=== PATIENT | female | born 1985 | race Caucasian/White ===

== ENCOUNTER 2019-10-05 11:08 | Emergency (ER) | payer MEDICAID ==
[2019-10-05 11:21] VITALS: BP 116/73
--- NOTE | 2019-10-05 12:11 | ED Physician Documentation ---
History of Present Illness - Stated complaint Stated Complaint: COLD SX/CHEST CONGESTION - Chief complaint Chief Complaint: Resp - Additonal information Additional information: This is a 34-year-old female with a history of childhood asthma who presents with some sinus pressure, cough productive of green sputum, ear pressure, for 3 days. Patient traveled here from [place] and states that when she drove over passes she would have pressure in her ears. She felt some subjective fever on Thursday and Thursday, none today. She denies abdominal pain or vomiting, no chest pain. She is a history of asthma, and states that her breathing has felt a little bit tight today. Review of Systems Constitutional: reports: Fever Cardiac: denies: Chest pain / pressure Respiratory: reports: Cough Skin: denies: Rash PD PAST MEDICAL HISTORY - Past Medical History Past Medical History: No - Past Surgical History Past Surgical History: No - Present Medications Home Medications: Ambulatory Orders Medication Instructions Recorded Confirmed Albuterol Sulf [Ventolin Hfa 1 - 2 puffs INH Q4HR PRN #1 inhaler 10/05/19 Inhaler] Benzonatate [Tessalon Perle] 100 - 200 mg PO TID PRN #30 capsule 10/05/19 Fluticasone [Flonase] 1 spray DAILY 10/05/19 10/05/19 Omeprazole 0 mg DAILY 10/05/19 10/05/19 - Allergies Allergies/Adverse Reactions: Allergies Allergy/AdvReac Type Severity Reaction Status Date / Time No Known Drug Allergies Allergy Verified 10/05/19 11:21 - Social History Does the pt smoke?: No Smoking Status: Never smoker Does the pt drink ETOH?: No Does the pt have substance abuse?: No - Immunizations Immunizations are current?: Yes PD ED PE NORMAL - Vitals Vital signs reviewed: Yes - General General: Alert and oriented X 3 - HEENT HEENT: Atraumatic, Pharynx benign - Neck Neck: Supple, no meningeal sign - Cardiac Cardiac: RRR, No murmur - Respiratory Respiratory: No respiratory distress, Clear bilaterally, Other (intermittent cough) - Abdomen Abdomen: Non tender, Non distended - Neuro Neuro: Alert and oriented X 3 Results - Vitals Vitals: Vital Signs - 24 hr 10/05/19 11:14 Temperature 36.7 C Heart Rate 88 Respiratory 16 Rate Blood Pressure 116/73 O2 Saturation 96 Oxygen O2 Source Room air - Rads (name of study) CXR Radiology: Other (No acute cardiopulmonary process) PD MEDICAL DECISION MAKING - ED course Complexity details: considered differential (URI, asthma, pneumonia, bronchitis, otitis media) ED course: Pt is non-toxic in appearance, with unremarkable vital signs. No suppurative otitis media on exam, she has a small amount of serous fluid that is likely due to eustachian tube dysfunction. XR is negative for acute pulmonary abnormality and the duration of her symptoms and vital signs make pneumonia and bacterial sinusitis unlikely clinically. I discussed that she appears to have a URI. She is not wheezing but she may trial albuterol given her history of asthma. Supportive care was reviewed along with return precautions and patient was discharged home in the care of her mother. Departure - Departure Disposition: 01 Home, Self Care Clinical Impression: Upper respiratory tract infection Qualifiers: URI type: unspecified viral URI Qualified Code(s): J06.9 - Acute upper respiratory infection, unspecified Condition: Good Instructions: ED Viral Syndrome Prescriptions: Albuterol Sulf [Ventolin Hfa Inhaler] 1 - 2 puffs INH Q4HR PRN #1 inhaler PRN Reason: Shortness Of Air/Wheezing Benzonatate [Tessalon Perle] 100 - 200 mg PO TID PRN #30 capsule PRN Reason: Cough Comments: You appear to have a viral upper respiratory infection today. Please drink plenty of fluids and get adequate rest. Try the Tessalon Perles for cough and the albuterol inhaler for feelings of congestion. You may take 600 mg of ibuprofen every 6 hours as needed for fever pain, 650 mg of Tylenol as needed for fever and pain every 6 hours as needed. Or you may take a cold remedy of your choice. Discharge Date/Time: 10/05/19 12:56
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
[2019-10-05] MEDS ORDERED: DEXAMETHASONE 10 MG/ML VIAL PO STA (12:31)
[2019-10-05] MEDS ORDERED: CHERRY SYRUP 10 ML UDC PO ONE (12:31)
== END 2019-10-05 12:56 | disposition home or self-care (01) ==
LOC: ED 11:08
DX: J06.9 Acute upper respiratory infection, unspecified (principal)
CPT/HCPCS: 71046; 99283; A9270

== ENCOUNTER 2019-10-25 05:17 | Emergency (ER) | payer MEDICAID ==
[2019-10-25] MEDS ORDERED: SODIUM CHLORIDE 0.9% 1,000 ML IV STA (05:40)
[2019-10-25] MEDS ORDERED: ONDANSETRON 4 MG/2 ML VIAL IVP STA (05:40)
[2019-10-25 05:49] LABS: BASOPHILS % (AUTO) 0.2 %; EOSINOPHILS # (AUTO) 0.1 10^3/uL (0.0-0.7); EOSINOPHILS % (AUTO) 0.4 %; HGB - HEMOGLOBIN 14.5 g/dL (12.0-16.0); LYMPHOCYTES # (AUTO) 1.6 10^3/uL (1.5-3.5); LYMPHOCYTES % (AUTO) 12.3 %; MEAN CORPUSCULAR HGB CONC 33.6 g/dL (32.0-36.0); MEAN CORPUSCULAR VOLUME 92.5 fL (81.0-99.0); MEAN PLATELET VOLUME 10.5 fL (7.9-10.8); MONOCYTES # (AUTO) 0.6 10^3/uL (0.0-1.0); MONOCYTES % (AUTO) 4.9 %; NEUTROPHILS # (AUTO) 10.3 10^3/uL (1.5-6.6); NEUTROPHILS % (AUTO) 81.8 %; PLT - PLATELET COUNT 275 10^3/uL (130-450); RED BLOOD COUNT 4.67 10^6/uL (4.20-5.40); RED CELL DISTRIBUTION WIDTH 12.4 % (12.0-15.0); WHITE BLOOD COUNT 12.6 x10^3/uL (4.8-10.8)
[2019-10-25 06:06] LABS: ALBUMIN 4.4 g/dL (3.2-5.5); ALBUMIN/GLOBULIN RATIO 1.3 (1.0-2.2); BILIRUBIN,TOTAL 0.8 mg/dL (0.2-1.0); CALCIUM 9.9 mg/dL (8.5-10.3); CREATININE 0.7 mg/dL (0.4-1.0); TOTAL PROTEIN 7.7 g/dL (6.7-8.2)
[2019-10-25] MEDS ORDERED: SODIUM CHLORIDE 0.9% 1,000 ML IV ONE (07:04)
[2019-10-25 07:14] VITALS: BP 105/80
--- NOTE | 2019-10-25 07:37 | ED Physician Documentation ---
History of Present Illness - Stated complaint Stated Complaint: NAUSEA/SYNCOPE - Chief complaint Chief Complaint: Neuro - History obtained from History obtained from: Patient, Family - History of Present Illness Timing: How many hours ago (4) Pain level max: 3 Pain level now: 2 - Additonal information Additional information: nausea, vomiting and diarrhea for the past 3-4 hours. No fever. Nothing makes it better or worse. States believes she passed out and she fell, striking the bridge of her nose. no epistaxis. no neck or back pain. No possibility of . not . Patient states that she felt lightheaded and dizzy before passing out. She states that she was pale and sweaty as well. Review of Systems Constitutional: denies: Fever, Chills Nose: denies: Rhinorrhea / runny nose, Congestion : denies: Dysuria, Now EGA Skin: denies: Rash Musculoskeletal: denies: Neck pain, Back pain Neurologic: denies: Focal weakness, Numbness, Confused, Altered mental status PD PAST MEDICAL HISTORY - Past Surgical History Past Surgical History: No - Present Medications Home Medications: Ambulatory Orders Medication Instructions Recorded Confirmed Albuterol Sulf [Ventolin Hfa 1 - 2 puffs INH Q4HR PRN #1 inhaler 10/05/19 Inhaler] Benzonatate [Tessalon Perle] 100 - 200 mg PO TID PRN #30 capsule 10/05/19 Fluticasone [Flonase] 1 spray DAILY 10/05/19 10/05/19 Omeprazole 0 mg DAILY 10/05/19 10/05/19 Ondansetron Odt [Zofran] 4 mg TL Q6H PRN #10 tablet 10/25/19 - Allergies Allergies/Adverse Reactions: Allergies Allergy/AdvReac Type Severity Reaction Status Date / Time gluten Allergy Intermediate Cramps Verified 10/25/19 05:54 - Social History Does the pt smoke?: No Smoking Status: Never smoker Does the pt drink ETOH?: No Does the pt have substance abuse?: No - Immunizations Immunizations are current?: Yes PD ED PE NORMAL - Vitals Vital signs reviewed: Yes - General General: Alert and oriented X 3, No acute distress, Well developed/nourished - HEENT HEENT: Atraumatic, PERRL, EOMI, Moist mucous membranes, Pharynx benign, Other (No scalp hematomas or palpable skull fractures. Small ecchymosis to the bridge of the nose. No significant swelling. No septal hematoma. No facial bone tenderness) - Neck Neck: Supple, no meningeal sign, No bony TTP - Cardiac Cardiac: RRR, Strong equal pulses - Respiratory Respiratory: No respiratory distress, Clear bilaterally - Abdomen Abdomen: Soft, Non tender, Non distended - Back Back: No CVA TTP, No spinal TTP - Derm Derm: Warm and dry, No rash - Extremities Extremities: No edema - Neuro Neuro: Alert and oriented X 3, administrative support manager 2-12 intact, No motor deficit, No sensory deficit, Normal speech Eye Opening: Spontaneous Motor: Obeys Commands Verbal: Oriented GCS Score: 15 Results - Vitals Vitals: Vital Signs - 24 hr 10/25/19 10/25/19 10/25/19 05:25 05:40 06:20 Temperature 36.8 C Heart Rate 96 86 91 Respiratory 15 15 Rate Blood Pressure 118/87 H 110/77 O2 Saturation 100 100 10/25/19 07:13 Temperature Heart Rate 87 Respiratory 17 Rate Blood Pressure 105/80 O2 Saturation 99 Oxygen O2 Source Room air - EKG (time done) 0534 Rate: Rate (enter#) (96) Rhythm: NSR [place]: Normal Intervals: Normal MD QRS: Normal Ischemia: Normal ST segments - Labs Labs: Laboratory Tests 10/25/19 10/25/19 10/25/19 05:30 05:30 07:50 WBC 12.6 H RBC 4.67 Hgb 14.5 Hct 43.2 MCV 92.5 MCH 31.0 MCHC 33.6 RDW 12.4 Plt Count 275 MPV 10.5 Neut # (Auto) 10.3 H Lymph # (Auto) 1.6 [place] # (Auto) 0.6 Eos # (Auto) 0.1 Baso # (Auto) 0.0 Absolute Nucleated RBC 0.00 Nucleated RBC % 0.0 Sodium 140 Potassium 3.6 Chloride 105 Carbon Dioxide 24 Anion Gap 11.0 BUN 16 Creatinine 0.7 Estimated GFR (MDRD) 95 Glucose 115 H Calcium 9.9 Total Bilirubin 0.8 AST 60 H ALT 90 H Alkaline Phosphatase 86 Total Protein 7.7 Albumin 4.4 Globulin 3.3 Albumin/Globulin Ratio 1.3 Lipase 30 Urine Color YELLOW Urine Clarity CLEAR Urine pH 8.0 H Ur Specific [place] 1.015 Urine Protein NEGATIVE Urine Glucose (UA) NEGATIVE Urine Ketones NEGATIVE Urine Occult Blood NEGATIVE Urine Nitrite NEGATIVE Urine Bilirubin NEGATIVE Urine Urobilinogen 0.2 (NORMAL) Ur Leukocyte Esterase NEGATIVE Ur Microscopic Review NOT INDICATED Urine Culture Comments NOT INDICATED Urine HCG, Qual NEGATIVE PD MEDICAL DECISION MAKING - ED course Complexity details: reviewed results, re-evaluated patient, considered differential, d/w patient, d/w family ED course: Patient is well-appearing, nontoxic. Appears to have had a viral gastroenteritis. She is tolerating p.o. without difficulty. Feels much better after IV fluids. Her nose appears contused, but not likely fractured. No acute findings on EKG or telemetry monitoring. Patient counseled regarding signs and symptoms for which I believe and urgent re-evaluation would be necessary. Patient with good understanding of and agreement to plan and is comfortable going home at this time This document was made in part using voice recognition software. While efforts are made to proofread this document, sound alike and grammatical errors may occur. Departure - Departure Disposition: 01 Home, Self Care Clinical Impression: Viral gastroenteritis, Vasovagal syncope Nasal contusion Qualifiers: Encounter type: initial encounter Qualified Code(s): S00.33XA - Contusion of nose, initial encounter Condition: Good Instructions: ED Syncope Vasovagal, ED Gastroenteritis Viral Follow-Up: your,doctor as needed [Other] Prescriptions: Ondansetron Odt [Zofran] 4 mg TL Q6H PRN #10 tablet PRN Reason: Nausea / Vomiting Comments: Go home and rest. Return if you worsen. Drink plenty of fluids today and tomorrow. Discharge Date/Time: 10/25/19 08:41
[2019-10-25 08:11] LABS: BILIRUBIN,URINE NEGATIVE (NEGATIVE); GLUCOSE, URINE (UA) NEGATIVE (NEGATIVE); KETONES,URINE (UA) NEGATIVE (NEGATIVE); LEUKOCYTE ESTERASE, URINE NEGATIVE (NEGATIVE); NITRITE,URINE NEGATIVE (NEGATIVE); OCCULT BLOOD,URINE NEGATIVE (NEGATIVE); PROTEIN,URINE NEGATIVE (NEGATIVE); UROBILINOGEN,URINE 0.2 (NORMAL) E.U./dL (NORMAL)
[2019-10-25 08:12] LABS: CLARITY,URINE CLEAR (CLEAR)
[2019-10-25 08:13] LABS: HCG UR QUAL NEGATIVE
== END 2019-10-25 08:41 | disposition home or self-care (01) ==
LOC: ED 05:17
DX: A08.4 Viral intestinal infection, unspecified (principal); R55 Syncope and collapse; S00.33XA Contusion of nose, initial encounter; W19.XXXA Unspecified fall, initial encounter
CPT/HCPCS: 36415; 80053; 81001; 81003; 81025; 83690; 85025; 87086; 93005; 96361; 96374; 99284

== ENCOUNTER 2020-01-30 09:27 | Outpatient (CLI) | payer MEDICAID ==
[2020-01-30 10:21] LABS: BASOPHILS # (AUTO) 0.1 10^3/uL (0.0-0.1); EOSINOPHILS % (AUTO) 0.4 %; HGB - HEMOGLOBIN 13.3 g/dL (12.0-16.0); LYMPHOCYTES # (AUTO) 1.5 10^3/uL (1.5-3.5); LYMPHOCYTES % (AUTO) 28.4 %; MEAN CORPUSCULAR HEMOGLOBIN 29.8 pg (27.0-31.0); MEAN CORPUSCULAR HGB CONC 31.7 g/dL (32.0-36.0); MEAN PLATELET VOLUME 11.1 fL (7.9-10.8); MONOCYTES # (AUTO) 0.4 10^3/uL (0.0-1.0); NEUTROPHILS # (AUTO) 3.2 10^3/uL (1.5-6.6); NEUTROPHILS % (AUTO) 61.8 %; PLT - PLATELET COUNT 262 10^3/uL (130-450); RED BLOOD COUNT 4.47 10^6/uL (4.20-5.40); RED CELL DISTRIBUTION WIDTH 12.8 % (12.0-15.0); WHITE BLOOD COUNT 5.1 x10^3/uL (4.8-10.8)
[2020-01-30 10:35] LABS: ALBUMIN 4.4 g/dL (3.2-5.5); ALBUMIN/GLOBULIN RATIO 1.5 (1.0-2.2); BILIRUBIN,TOTAL 0.5 mg/dL (0.2-1.0); CALCIUM 9.4 mg/dL (8.5-10.3); CREATININE 0.6 mg/dL (0.4-1.0); TOTAL PROTEIN 7.3 g/dL (6.7-8.2)
== END 2020-01-30 09:28 | disposition home or self-care (01) ==
LOC: LAB 09:27
PROVIDERS: ATTEND Registered Nurse
DX: E34.9 Endocrine disorder, unspecified (principal); J30.2 Other seasonal allergic rhinitis; Z91.018 Allergy to other foods; E28.2 Polycystic ovarian syndrome
CPT/HCPCS: 36415; 80053; 82951; 84443; 85025

== ENCOUNTER 2020-02-06 07:23 | Outpatient (CLI) | payer MEDICAID | END 2020-02-06 07:24 | disposition home or self-care (01) | LOC: LAB 07:23 | PROVIDERS: ATTEND Registered Nurse | DX: E34.9 Endocrine disorder, unspecified (principal); E28.2 Polycystic ovarian syndrome; J30.2 Other seasonal allergic rhinitis; Z91.018 Allergy to other foods | CPT/HCPCS: 36415; 82951 ==

== ENCOUNTER 2021-07-08 10:21 | Outpatient (CLI) | payer MEDICAID | END 2021-07-08 23:59 | disposition home or self-care (01) | LOC: LAB.R 10:21 | PROVIDERS: ATTEND Emergency Medicine | DX: U07.1 COVID-19 (principal) ==

== ENCOUNTER 2021-10-31 11:00 | Outpatient (CLI) | payer MEDICAID ==
[2021-10-31 15:36] LABS: T4 (THYROXINE) 7.65 ug/dL (6.09-12.23)
[2021-10-31 15:39] LABS: THYROID STIMULATING HORMONE 3.91 uIU/mL (0.34-5.60)
[2021-10-31 16:31] LABS: FREE T4 (FREE THYROXINE) 0.64 ng/dL (0.58-1.64)
== END 2021-10-31 11:01 | disposition home or self-care (01) ==
LOC: LAB.S 11:00
PROVIDERS: ATTEND Nurse Practitioner Obstetrics & Gynecology
DX: L65.9 Nonscarring hair loss, unspecified (principal)
CPT/HCPCS: 36415; 84436; 84439; 84443

== ENCOUNTER 2021-12-20 10:08 | Outpatient (CLI) | payer MEDICAID ==
[2021-12-20 15:47] LABS: HCT - HEMATOCRIT 41.3 % (37.0-47.0); HGB - HEMOGLOBIN 13.5 g/dL (12.0-16.0); MEAN CORPUSCULAR HEMOGLOBIN 31.7 pg (27.0-31.0); MEAN CORPUSCULAR HGB CONC 32.7 g/dL (32.0-36.0); MEAN CORPUSCULAR VOLUME 96.9 fL (81.0-99.0); MEAN PLATELET VOLUME 10.9 fL (7.9-10.8); RED BLOOD COUNT 4.26 10^6/uL (4.20-5.40); RED CELL DISTRIBUTION WIDTH 12.3 % (12.0-15.0); WHITE BLOOD COUNT 5.1 x10^3/uL (4.8-10.8)
== END 2021-12-20 10:09 | disposition home or self-care (01) ==
LOC: LAB.S 10:08
PROVIDERS: ATTEND Nurse Practitioner Obstetrics & Gynecology
DX: R53.83 Other fatigue (principal); L65.9 Nonscarring hair loss, unspecified
CPT/HCPCS: 36415; 85025; 85027

== ENCOUNTER 2022-01-22 11:50 | Outpatient (CLI) | payer MEDICAID | END 2022-01-22 11:51 | disposition home or self-care (01) | LOC: LAB.S 11:50 | PROVIDERS: ATTEND Nurse Practitioner Obstetrics & Gynecology | DX: L65.9 Nonscarring hair loss, unspecified (principal) | CPT/HCPCS: 36415; 82728 ==

== ENCOUNTER 2023-02-09 08:00 | Outpatient (CLI) | payer MEDICAID ==
--- NOTE | 2023-02-09 17:13 | XRAY Report ---
PROCEDURE: Chest 2 View X-Ray INDICATIONS: PRODUCTIVE COUGH TECHNIQUE: 2 views of the chest were acquired. COMPARISON: None. FINDINGS: Surgical changes and devices: None. Lungs and pleura: No pleural effusions or pneumothorax. Lungs are clear. Mediastinum: Mediastinal contours are normal. Heart size is normal. Bones and chest wall: No suspicious bony abnormalities. Soft tissues appear unremarkable. IMPRESSION: No acute cardiopulmonary findings. Reviewed by: Amira Luke MD on 02/09/2023 5:11 PM PDT Approved by: Amira Luke MD on 02/09/2023 5:11 PM PDT Station ID: [id number]
== END 2023-02-09 23:59 | disposition home or self-care (01) ==
LOC: DI.S 08:00
PROVIDERS: ATTEND Physician Assistant Medical
DX: R05.8 Other specified cough (principal); R09.89 Other specified symptoms and signs involving the circulatory and respiratory systems

== ENCOUNTER 2023-07-13 10:40 | Outpatient (CLI) | payer MEDICAID ==
--- NOTE | 2023-07-14 09:11 | Mammography Report ---
BILATERAL FIRST EVER DIGITAL SCREENING MAMMOGRAM 3D/2D WITH EXAGGERATED CC: 07/13/2023 CLINICAL: Routine screening. Baseline exam. Family history of breast cancer. No prior exams were available for comparison. Both breasts are heterogeneously dense, which may obscure small masses (category c / 51-75% glandular tissue). Multiple asymmetries are present within the left breast as detailed on wilson images. No other significant masses, calcifications, or other findings are seen in either breast. IMPRESSION: INCOMPLETE: NEEDS ADDITIONAL IMAGING EVALUATION Multiple left-sided asymmetries warrant further evaluation with additional views and possible ultras ound. Based on Tyrer-Cuzick model (a risk assessment model), the patient's lifetime risk is 20.1% and her 1 0 year risk is 2.6%. If a patient has an elevated risk, a more comprehensive evaluation should be con sidered and/or a referral to a genetic counselor. The [place] [employer], [employer], and NCCN Guidelines advise the consideration of Breast MRI as an adjunct to screening mammog lauro in patients whose "Lifetime risk to develop breast cancer" is 20% or higher. This exam was interpreted at Station ID: [id number]. NOTE: For mammograms, a report in lay terms will be sent to the patient. Approximately 15% of breast malignancies will not be visualized mammographically. In the management of a palpable breast mass, a negative mammogram must not discourage biopsy of a clinically suspicious lesion. Electronically Signed By: Evaristo Hernandez M.D. acr/:07/13/2023 16:08:11 ACR BI-RADS Category 0: Incomplete 3340F PARENCHYMAL PATTERN: (D) - The breast(s) demonstrate(s) heterogeneously dense fibroglandular parenchy ma. BI-RADS CATEGORY: (0) - 0 Mammo and [place] [id number] Immediate follow-up LATERALITY: (L)
== END 2023-07-13 10:41 | disposition home or self-care (01) ==
LOC: DI.S 10:40
PROVIDERS: ATTEND Obstetrics & Gynecology
DX: Z12.31 Encounter for screening mammogram for malignant neoplasm of breast (principal); Z80.3 Family history of malignant neoplasm of breast; R92.8 Other abnormal and inconclusive findings on diagnostic imaging of breast

== ENCOUNTER 2023-08-10 10:39 | Outpatient (CLI) | payer MEDICAID ==
--- NOTE | 2023-08-11 09:50 | Mammography Report ---
UNILATERAL LEFT DIGITAL DIAGNOSTIC MAMMOGRAM 3D/2D WITH SPOT COMPRESSION: 08/10/2023 CLINICAL: Patient returns today to evaluate multiple asymmetries in the left breast. Comparison is made to exam dated: 07/13/2023 mammogram - [facility]. The left breast is heterogeneously dense, which may obscure small masses (category c / 51-75% glandul ar tissue). There is an oval asymmetry in the left breast posterior depth central to the nipple seen on the crani ocaudal view only. There also is an oval asymmetry in the left breast sub-areolar depth central to the nipple seen on th e craniocaudal view only. Additionally, there is an oval asymmetry in the left breast at 7 o'clock in the retroareolar region. No other significant masses or calcifications are seen in the breast. IMPRESSION: INCOMPLETE: NEEDS ADDITIONAL IMAGING EVALUATION Multiple oval asymmetries and focal asymmetries as outlined on screening mammography measuring 0.5-0. 8cm, possibly cysts. Ultrasound recommended. Based on Tyrer-Cuzick model (a risk assessment model), the patient's lifetime risk is 20.1% and her 1 0 year risk is 2.6%. If a patient has an elevated risk, a more comprehensive evaluation should be con sidered and/or a referral to a genetic counselor. The [employer] [employer], [employer], and NCCN Guidelines advise the consideration of Breast MRI as an adjunct to screening mammog lauro in patients whose "Lifetime risk to develop breast cancer" is 20% or higher. This exam was interpreted at Station ID: [id number]. NOTE: For mammograms, a report in lay terms will be sent to the patient. Approximately 15% of breast malignancies will not be visualized mammographically. In the management of a palpable breast mass, a negative mammogram must not discourage biopsy of a clinically suspicious lesion. Electronically Signed By: Titi Persaud M.D. lc/:08/10/2023 11:41:20 ACR BI-RADS Category 0: Incomplete 3340F PARENCHYMAL PATTERN: (D) - The breast(s) demonstrate(s) heterogeneously dense fibroglandular parenchy ma. BI-RADS CATEGORY: (0) - 0 Ultrasound [id number] Immediate follow-up LATERALITY: (B)
--- NOTE | 2023-08-11 09:51 | Ultrasound Report ---
LIMITED ULTRASOUND OF LEFT BREAST: 08/10/2023 CLINICAL: Patient returns today to evaluate a focal asymmetry in the left breast. Comparison is made to exam dated: 07/13/2023 mammogram - [facility]. Color flow ultrasound of the left breast 6-9 o'clock, and retroareolar regions was performed. Watson scale images of the real-time examination were reviewed. Multiple benign cysts are present measuring 0.4-0.5cm at 6-7:00 2cm from the nipple. These partially account for the multiple focal asymmetries described on mammogram. IMPRESSION: PROBABLY BENIGN Multiple benign cysts are present measuring 0.4-0.5cm at 6-7:00 2cm from the nipple. These partially account for the multiple focal asymmetries described on mammogram. The mammographic oval asymmetries and focal asymmetries are probably benign, follow up 6 month mammog maria ines recommended. These are noted on wilson images from screening mammogram on 07/13/2023. Please note patient also has elevated lifetime risk over 20%, for which supplemental screening MRI sh ould be considered. This exam was interpreted at Station ID: [id number]. Electronically Signed By: Titi Persaud M.D. /:08/11/2023 09:46:25 Entry: - 08/11/2023 09:46:25 Ultrasound BI-RADS: 3 Probably benign BI-RADS CATEGORY: (3) - 3 Mammogram [id number] 6 month follow-up LATERALITY: (B)
== END 2023-08-10 10:40 | disposition home or self-care (01) ==
LOC: DI 10:39
PROVIDERS: ATTEND Obstetrics & Gynecology
DX: N60.12 Diffuse cystic mastopathy of left breast (principal)